=== PATIENT | female | born 1985 | race Caucasian/White ===

== ENCOUNTER 2016-10-28 17:38 | Emergency (ER) | payer MEDICARE, MEDICAID ==
[2016-10-28] MEDS ORDERED: Ondansetron 8 MG Tab.DIS PO ONE (18:21)
[2016-10-28] MEDS ORDERED: Alum Hydroxide/Mag Hydroxide 15 ML, Lidocaine 2% 15 ML PO STA ×2 (18:22)
--- NOTE | 2016-10-28 18:24 | EDM.PDOC ---
ED HPI GENERAL MEDICAL PROBLEM - General Chief Complaint: Abdominal Pain Stated Complaint: LEFT SIDE PAIN, Time Seen by Provider: 10/28/16 17:54 Source of Information: Reports: Patient, Family History Limitations: Reports: No Limitations - History of Present Illness INITIAL COMMENTS - FREE TEXT/NARRATIVE: 31 yo.w.f with a h/o esophagits, come to the ed with her SO, due to acute pain at her mid upper and right upper abdomen. Pt denies using tobacco, etoh or illicit drugs. No trauma. No abdominal surgery in the past, denies . No other acute medical issues. BP 122/56 pulse 76. Onset: Today Onset Date: 10/28/16 Onset Time: 08:00 Duration: Hour(s):, Intermittent Location: Reports: Abdomen (epigastric, RUQ of abdomen) Quality: Reports: Burning, Dull Severity: Moderate Improves with: Reports: Rest Worsens with: Reports: Eating Context: Reports: Other (stress?) Associated Symptoms: Reports: Seizure (H/O) Right Upper Abdomen Pain Score (Numeric/FACES): 9 - Related Data Allergies Allergy/AdvReac Type Severity Reaction Status Date / Time divalproex sodium Allergy Hives Verified 10/28/16 17:53 [From Depakote] Home Meds: Home Meds Ondansetron [Zofran ODT] 4 mg PO Q6H PRN #14 tab.dis 10/28/16 [Rx] Pantoprazole Sodium [Protonix] 40 mg PO DAILY #30 tablet. 10/28/16 [Rx] carBAMazepine [Carbamazepine] 200 mg PO BID 10/28/16 [History] Past Medical History HEENT History: Reports: None Cardiovascular History: Reports: None Respiratory History: Reports: None Gastrointestinal History: Reports: GERD, Inflammatory Bowel Disease Genitourinary History: Reports: None [facility] History: Reports: None Musculoskeletal History: Reports: None Neurological History: Reports: Concussion, Head Trauma, Seizure Psychiatric History: Reports: ADHD, Anxiety, PTSD Endocrine/Metabolic History: Reports: None Hematologic History: Reports: None Oncologic (Cancer) History: Reports: None Dermatologic History: Reports: None - Infectious Disease History Infectious Disease History: Reports: Chicken Pox - Past Surgical History Head Surgeries/Procedures: Reports: None Other HEENT Surgeries/Procedures: WISDOM TEETH UNDER GENERAL ANESTHESIA. GI Surgical History: Reports: EGD Social & Family History - Family History Family Medical History: Noncontributory - Tobacco Use Smoking Status *Q: Current Every Day Smoker Years of Tobacco use: 2 Packs/Tins Daily: 0.5 - Caffeine Use Caffeine Use: Reports: None - Recreational Drug Use Recreational Drug Use: No ED ROS GENERAL - Review of Systems Review Of Systems: See Below Constitutional: Reports: No Symptoms HEENT: Reports: No Symptoms Respiratory: Reports: No Symptoms Cardiovascular: Reports: No Symptoms Endocrine: Reports: No Symptoms GI/Abdominal: Reports: Abdominal Pain : Reports: No Symptoms Musculoskeletal: Reports: No Symptoms Skin: Reports: No Symptoms Neurological: Reports: No Symptoms Psychiatric: Reports: No Symptoms Hematologic/Lymphatic: Reports: No Symptoms Immunologic: Reports: No Symptoms ED EXAM, GI/ABD - Physical Exam Exam: See Below Exam Limited By: No Limitations General Appearance: Alert, WD/WN, Mild Distress Eyes: Bilateral: Normal Appearance Ears: Normal External Exam Nose: Normal Inspection Throat/Mouth: Normal Inspection, Normal Lips, Normal Teeth Head: Atraumatic, Normocephalic Neck: Normal Inspection, Supple, Non-Tender Respiratory/Chest: No Respiratory Distress, Lungs Clear, Normal Breath Sounds, Chest Non-Tender Cardiovascular: Normal Peripheral Pulses, Regular Rate, Rhythm, No Edema, No Gallop GI/Abdominal Exam: Normal Bowel Sounds, Tender (epigastric and RUQ of abdomen) (Female) Exam: Deferred Rectal (Female) Exam: Deferred Back Exam: Normal Inspection, Full Range of Motion Extremities: Normal Inspection, Normal Range of Motion, Non-Tender Neurological: Alert, Oriented, CN II-XII Intact, Normal Cognition, Normal Gait, No Motor/Sensory Deficits Psychiatric: Normal Affect, Normal Mood Skin Exam: Warm, Dry, Intact, Normal Color, No Rash Lymphatic: No Adenopathy Course - Vital Signs Text/Narrative:: 31 yo.w.f with a h/o esophagits, come to the ed with her SO, due to acute pain at her mid upper and right upper abdomen. Pt denies using tobacco, etoh or illicit drugs. No trauma. No abdominal surgery in the past, denies . No other acute medical issues. BP 122/56 pulse 76. PE: WNWD w f, RUQ and mid upper abd. tenderness, with guarding. Labs: CBC, BMP nl. TB 0.3 and DB: 0.0 UA neg Imaging: US abd. pending, not available Impression: Gastritis, esophagitis, RUQ abd. pain Tx: Zofran, Gi coctail, Protonix and [place]. Reexam: Mild mod. improvement Plan: D/C with instructions Last Recorded V/S: Last Vital Signs Temp 36.1 C 10/28/16 17:54 Pulse 68 10/28/16 19:54 Resp 14 10/28/16 19:54 BP 118/60 10/28/16 19:54 Pulse Ox 99 10/28/16 19:54 - Orders/Labs/Meds Labs: Laboratory Tests 10/28/16 10/28/16 10/28/16 Range/Units 17:55 19:30 19:30 WBC 9.6 (4.5-12.0) X10-3/uL RBC 4.50 (3.23-5.20) x10(6)uL Hgb 14.0 (11.5-15.5) g/dL Hct 41.5 (30.0-51.3) % MCV 92.2 (80-96) fL MCH 31.1 (27.7-33.6) pg MCHC 33.7 (32.2-35.4) g/dL RDW 12.3 (11.5-15.5) % Plt Count 199 (125-369) X10(3)uL MPV 7.9 (7.4-10.4) fL Neut % (Auto) 60.7 (46-82) % Lymph % (Auto) 30.6 (13-37) % [place] % (Auto) 6.3 (4-12) % Eos % (Auto) 2 (1.0-5.0) % Baso % (Auto) 0 (0-2) % Neut # (Auto) 5.9 (1.6-8.3) # Lymph # (Auto) 2.9 (0.6-5.0) # [place] # (Auto) 0.6 (0.0-1.3) # Eos # (Auto) 0.2 (0.0-0.8) # Baso # (Auto) 0.0 (0.0-0.2) # Sodium 139 (135-145) mmol/L Potassium 3.7 (3.5-5.3) mmol/L Chloride 106 (100-110) mmol/L Carbon Dioxide 25 (23-29) mmol/L BUN 10 (5-20) mg/dL Creatinine 0.6 (0.6-1.3) mg/dL Est Cr Clr Drug Dosing 112.38 mL/min Estimated GFR (MDRD) > 60 (>60) BUN/Creatinine Ratio 16.7 (9-20) Glucose 89 (80-116) mg/dL Calcium 8.6 (8.6-10.2) mg/dL Total Bilirubin 0.3 (0.1-1.3) mg/dL Direct Bilirubin 0.0 L (0.1-0.2) mg/dL AST 16 (5-27) IU/L ALT 8 L (14-26) IU/L Alkaline Phosphatase 55 L (56-112) IU/L Total Protein 7.1 (6.0-8.0) g/dL Albumin 4.0 (3.5-5.2) g/dL Amylase 47 (28-100) U/L Urine Color Yellow (YELLOW) Urine Appearance Clear (CLEAR) Urine pH 6.0 (5.0-6.5) Ur Specific [place] 1.020 (1.010-1.025) Urine Protein Negative (NEGATIVE) mg/dL Urine Glucose (UA) Normal (NEGATIVE) mg/dL Urine Ketones Negative (NEGATIVE) mg/dL Urine Occult Blood Negative (NEGATIVE) Urine Nitrite Negative (NEGATIVE) Urine Bilirubin Negative (NEGATIVE) Urine Urobilinogen Normal (NEGATIVE) mg/dL Ur Leukocyte Esterase Negative (NEGATIVE) Urine RBC Not seen (0) Urine WBC 0-5 (0) Ur Squamous Epith Cells Moderate H (NS,R,O) Urine Bacteria Moderate H (NS) Meds: Medications Discontinued Medications Generic Name Dose Route Start Last Admin Trade Name Freq PRN Reason Stop Dose Admin Hydrocodone Bitart/Acetaminophen 1 tab 10/28/16 19:21 10/28/16 19:25 [place] 325-5 Mg PO 10/28/16 19:22 1 tab ONETIME ONE Administration Al Hydroxide/Mg Hydroxide 15 0 ml 10/28/16 18:22 10/28/16 18:38 ml/ Lidocaine HCl 15 ml PO 10/28/16 18:23 30 ml ONETIME STA Administration Ondansetron HCl 8 mg 10/28/16 18:21 08/27/17 18:31 Zofran Odt PO 10/28/16 18:22 8 mg ONETIME ONE Administration Pantoprazole Sodium 40 mg 10/28/16 19:23 10/28/16 19:25 Protonix PO 10/28/16 19:24 40 mg ONETIME ONE Administration Departure - Departure Time of Disposition: 19:53 Disposition: Home, Self-Care 01 Condition: Good Clinical Impression: Gastritis, RUQ pain, Esophagitis determined by endoscopy - Discharge Information Prescriptions: Ondansetron [Zofran ODT] 4 mg PO Q6H PRN #14 tab.dis PRN Reason: nausea and vomiting Pantoprazole Sodium [Protonix] 40 mg PO DAILY #30 tablet.dr Referrals: Jonathan Sanford MD [Primary Care Provider] - Forms: ED Department Discharge Additional Instructions: Please f/u on 10/29/2016 10.30 am for US RUQ of abdomen. NPO after midnight. Please take the meds as recommended, please come back to the ed if your symptoms get worse acutely.
[2016-10-28] MEDS ORDERED: Acetaminophen/HYDROcodone 325-5 MG Tab PO ONE (19:21)
[2016-10-28] MEDS ORDERED: Pantoprazole 40 MG Tab.CR PO ONE (19:23)
[2016-10-28 19:57] VITALS: BP 118/60
== END 2016-10-28 19:54 | disposition home or self-care (01) ==
LOC: FB.ED 17:38 → MERGE 17:38 → FB.ED 19:54
DX: K21.0 Gastro-esophageal reflux disease with esophagitis (principal); K29.70 Gastritis, unspecified, without bleeding; F90.9 Attention-deficit hyperactivity disorder, unspecified type; F41.9 Anxiety disorder, unspecified; F17.210 Nicotine dependence, cigarettes, uncomplicated; Z79.899 Other long term (current) drug therapy
CPT/HCPCS: 36415; 80048; 80076; 81001; 82150; 85025; 99284; A9270; 99283

== ENCOUNTER 2017-01-06 11:12 | Emergency (ER) | payer MEDICARE, MEDICAID ==
[2017-01-06] MEDS ORDERED: Ketorolac 60 MG/2 ML SDV IM ONE (11:32)
--- NOTE | 2017-01-06 11:42 | EDM.PDOC ---
ED HPI GENERAL MEDICAL PROBLEM - General Chief Complaint: General Stated Complaint: RIB/CHEST PAIN Time Seen by Provider: 01/06/17 11:12 Source of Information: Reports: Patient, Family - History of Present Illness INITIAL COMMENTS - FREE TEXT/NARRATIVE: 31 y.o.w.f with h/o Sz, om Tegretol, level checked recently, came to the ed after she fell onto her r lat chest wall. Pt has painfull in and expiration, tender to palpation. No N/V/D or any other injuries/acute medical issues. BP 136 /86 Pulse 66 RR 18 Pulse ox 100% Temp 36.6 Onset: Today Onset Date: 01/06/17 Onset Time: 06:00 Duration: Hour(s):, Intermittent Location: Reports: Chest Quality: Reports: Burning, Dull Severity: Moderate Right Thoracic Pain Score (Numeric/FACES): 10 - Related Data Allergies Allergy/AdvReac Type Severity Reaction Status Date / Time divalproex sodium Allergy Hives Verified 01/06/17 11:37 [From Depakote] Home Meds: Home Meds carBAMazepine [Carbamazepine] 200 mg PO BID 10/28/16 [History] Past Medical History HEENT History: Reports: None Cardiovascular History: Reports: None Respiratory History: Reports: None Gastrointestinal History: Reports: GERD, Inflammatory Bowel Disease Genitourinary History: Reports: None [employer] History: Reports: None Musculoskeletal History: Reports: None Neurological History: Reports: Concussion, Head Trauma, Seizure Psychiatric History: Reports: ADHD, Anxiety, PTSD Endocrine/Metabolic History: Reports: None Hematologic History: Reports: None Oncologic (Cancer) History: Reports: None Dermatologic History: Reports: None - Infectious Disease History Infectious Disease History: Reports: Chicken Pox - Past Surgical History Head Surgeries/Procedures: Reports: None HEENT Surgical History: Reports: Other (See Below) Other HEENT Surgeries/Procedures: WISDOM TEETH UNDER GENERAL ANESTHESIA. GI Surgical History: Reports: EGD Social & Family History - Family History Family Medical History: Noncontributory - Tobacco Use Smoking Status *Q: Current Every Day Smoker Years of Tobacco use: 4 Packs/Tins Daily: 0.5 - Caffeine Use Caffeine Use: Reports: None - Recreational Drug Use Recreational Drug Use: No ED ROS GENERAL - Review of Systems Review Of Systems: See Below Constitutional: Reports: No Symptoms HEENT: Reports: No Symptoms Respiratory: Reports: Pleuritic Chest Pain Cardiovascular: Reports: No Symptoms Endocrine: Reports: No Symptoms GI/Abdominal: Reports: No Symptoms : Reports: No Symptoms Musculoskeletal: Reports: No Symptoms Skin: Reports: No Symptoms Neurological: Reports: No Symptoms Psychiatric: Reports: No Symptoms Hematologic/Lymphatic: Reports: No Symptoms Immunologic: Reports: No Symptoms ED EXAM, GENERAL - Physical Exam Exam: See Below Exam Limited By: No Limitations General Appearance: Alert, WD/WN, Mild Distress Eye Exam: Bilateral Eye: Normal Inspection Ears: Normal External Exam Ear Exam: Bilateral Ear: Auricle Normal Nose: Normal Inspection Throat/Mouth: Normal Inspection Head: Atraumatic, Normocephalic Neck: Normal Inspection Respiratory/Chest: No Respiratory Distress, Lungs Clear, Normal Breath Sounds ( poor insp effort due to pain r ribs) Cardiovascular: Normal Peripheral Pulses Peripheral Pulses: 2+: Brachial (L), Brachial (R) GI/Abdominal: Normal Bowel Sounds, Soft (Female) Exam: Deferred Rectal (Female) Exam: Deferred Back Exam: Normal Inspection, Full Range of Motion Extremities: Normal Inspection, Normal Range of Motion Neurological: Alert, Oriented Psychiatric: Normal Affect, Normal Mood Skin Exam: Warm, Dry, Intact, Normal Color, No Rash Lymphatic: No Adenopathy Course - Vital Signs Text/Narrative:: 31 y.o.w.f with h/o Sz, om Tegretol, level checked recently, came to the ed after she fell onto her r lat chest wall. Pt has painfull in and expiration, tender to palpation. No N/V/D or any other injuries/acute medical issues. BP 136 /86 Pulse 66 RR 18 Pulse ox 100% Temp 36.6 no tongue bite, not post ictal PE: R chest pleurisy Imaging: R rib series: NAD, read by RAD Impression: H/O Sz, R chest wall sprain Tx: Toradol, ICE Reexam: Improved Plan: D/C with instructions Last Recorded V/S: Last Vital Signs Temp 36.6 C 01/06/17 11:26 Pulse 60 01/06/17 13:00 Resp 18 01/06/17 11:26 BP 112/78 01/06/17 13:00 Pulse Ox 100 01/06/17 11:26 - Orders/Labs/Meds Orders: Active Orders 24 hr Category Date Time Status Cooling Warming Measures [RC] ASDIRECTED Care 01/06/17 11:33 Active Ribs 2V w Chest Rt [CR] Stat Exams 01/06/17 11:31 Taken Ice Bag [Ice Therapy] [OM.PC] Routine Oth 01/06/17 11:33 Ordered Meds: Medications Discontinued Medications Generic Name Dose Route Start Last Admin Trade Name Nora PRN Reason Stop Dose Admin Ketorolac Tromethamine 60 mg 01/06/17 11:32 01/06/17 11:41 Toradol IM 01/06/17 11:33 60 mg ONETIME ONE Administration Departure - Departure Time of Disposition: 12:51 Disposition: Home, Self-Care 01 Condition: Good Clinical Impression: Sprain of ribs, initial encounter - Discharge Information Referrals: Jonathan Sanford MD [Primary Care Provider] - Forms: ED Department Discharge Additional Instructions: Please cont your current meds, please apply ice to the affected area, motrin for pain, follow up, come back if your symptoms get worse acutely - My Orders Last 24 Hours: My Active Orders 01/06/17 11:31 Ribs 2V w Chest Rt [CR] Stat 01/06/17 11:33 Cooling Warming Measures [RC] ASDIRECTED Ice Bag [Ice Therapy] [OM.PC] Routine - Assessment/Plan Last 24 Hours: My Active Orders 01/06/17 11:31 Ribs 2V w Chest Rt [CR] Stat 01/06/17 11:33 Cooling Warming Measures [RC] ASDIRECTED Ice Bag [Ice Therapy] [OM.PC] Routine
[2017-01-06 13:01] VITALS: BP 112/78
--- NOTE | 2017-01-06 14:32 | EDM.PDOC ---
ED HPI GENERAL MEDICAL PROBLEM - General Chief Complaint: General Stated Complaint: RIB/CHEST PAIN Time Seen by Provider: 01/06/17 11:12 Source of Information: Reports: Patient, Family History Limitations: Reports: No Limitations - History of Present Illness INITIAL COMMENTS - FREE TEXT/NARRATIVE: 31 y.o.w.f with h/o Sz, om Tegretol, level checked recently, came to the ed after she fell onto her r lat chest wall. Pt has painfull in and expiration, tender to palpation. No N/V/D or any other injuries/acute medical issues. BP 136 /86 Pulse 66 RR 18 Pulse ox 100% Temp 36.6 Onset: Today Onset Date: 01/06/17 Onset Time: 06:00 Duration: Hour(s):, Intermittent Location: Reports: Chest Quality: Reports: Burning, Dull Severity: Moderate Right Thoracic Pain Score (Numeric/FACES): 10 - Related Data Allergies Allergy/AdvReac Type Severity Reaction Status Date / Time divalproex sodium Allergy Hives Verified 01/06/17 11:37 [From Depakote] Home Meds: Home Meds carBAMazepine [Carbamazepine] 200 mg PO BID 10/28/16 [History] Past Medical History HEENT History: Reports: None Cardiovascular History: Reports: None Respiratory History: Reports: None Gastrointestinal History: Reports: GERD, Inflammatory Bowel Disease Genitourinary History: Reports: None [employer] History: Reports: None Musculoskeletal History: Reports: None Neurological History: Reports: Concussion, Head Trauma, Seizure Psychiatric History: Reports: ADHD, Anxiety, PTSD Endocrine/Metabolic History: Reports: None Hematologic History: Reports: None Oncologic (Cancer) History: Reports: None Dermatologic History: Reports: None - Infectious Disease History Infectious Disease History: Reports: Chicken Pox - Past Surgical History Head Surgeries/Procedures: Reports: None HEENT Surgical History: Reports: Other (See Below) Other HEENT Surgeries/Procedures: WISDOM TEETH UNDER GENERAL ANESTHESIA. GI Surgical History: Reports: EGD Social & Family History - Family History Family Medical History: Noncontributory - Tobacco Use Smoking Status *Q: Current Every Day Smoker Years of Tobacco use: 4 Packs/Tins Daily: 0.5 - Caffeine Use Caffeine Use: Reports: None - Recreational Drug Use Recreational Drug Use: No ED ROS GENERAL - Review of Systems Review Of Systems: See Below Constitutional: Reports: No Symptoms HEENT: Reports: No Symptoms Respiratory: Reports: No Symptoms Cardiovascular: Reports: Chest Pain Endocrine: Reports: No Symptoms GI/Abdominal: Reports: No Symptoms : Reports: No Symptoms Musculoskeletal: Reports: No Symptoms Skin: Reports: No Symptoms Neurological: Reports: No Symptoms Psychiatric: Reports: No Symptoms Hematologic/Lymphatic: Reports: No Symptoms Immunologic: Reports: No Symptoms ED EXAM, GENERAL - Physical Exam Exam: See Below Free Text/Narrative:: 31 y.o.w.f with h/o Sz, om Tegretol, level checked recently, came to the ed after she fell onto her r lat chest wall. Pt has painfull in and expiration, tender to palpation. No N/V/D or any other injuries/acute medical issues. BP 136 /86 Pulse 66 RR 18 Pulse ox 100% Temp 36.6 Exam Limited By: No Limitations General Appearance: Alert, WD/WN, Mild Distress Eye Exam: Bilateral Eye: Normal Inspection Ears: Normal External Exam Ear Exam: Bilateral Ear: Auricle Normal Nose: Normal Inspection Throat/Mouth: Normal Inspection Head: Atraumatic, Normocephalic Neck: Normal Inspection Respiratory/Chest: No Respiratory Distress, Lungs Clear, Normal Breath Sounds ( poor insp effort due to pain r ribs) Cardiovascular: Normal Peripheral Pulses Peripheral Pulses: 2+: Brachial (L), Brachial (R) GI/Abdominal: Normal Bowel Sounds, Soft Back Exam: Normal Inspection, Full Range of Motion Extremities: Normal Inspection, Normal Range of Motion Neurological: Alert, Oriented Psychiatric: Normal Affect, Normal Mood Skin Exam: Warm, Dry, Intact, Normal Color, No Rash Lymphatic: No Adenopathy Course - Vital Signs Text/Narrative:: 31 y.o.w.f with h/o Sz, om Tegretol, level checked recently, came to the ed after she fell onto her r lat chest wall. Pt has painfull in and expiration, tender to palpation. No N/V/D or any other injuries/acute medical issues. BP 136 /86 Pulse 66 RR 18 Pulse ox 100% Temp 36.6 PE: R chest wall pain after fall Imaging: R Ribseries: No Fx as per RAD Impression: R rib sprain Tx: NSAID, ICE Reexam: Improved Plan: D/C with instructions Last Recorded V/S: Last Vital Signs Temp 36.6 C 01/06/17 11:26 Pulse 60 1105/17 13:00 Resp 18 01/06/17 11:26 BP 112/78 01/06/17 13:00 Pulse Ox 100 01/06/17 11:26 - Orders/Labs/Meds Orders: Active Orders 24 hr Category Date Time Status Cooling Warming Measures [RC] ASDIRECTED Care 01/06/17 11:33 Active Ribs 2V w Chest Rt [CR] Stat Exams 01/06/17 11:31 Taken Ice Bag [Ice Therapy] [OM.PC] Routine Oth 01/06/17 11:33 Ordered Meds: Medications Discontinued Medications Generic Name Dose Route Start Last Admin Trade Name Nora PRN Reason Stop Dose Admin Ketorolac Tromethamine 60 mg 01/06/17 11:32 01/06/17 11:41 Toradol IM 01/06/17 11:33 60 mg ONETIME ONE Administration Departure - Departure Time of Disposition: 14:00 Disposition: Home, Self-Care 01 Condition: Good Clinical Impression: Sprain of ribs, initial encounter - Discharge Information Referrals: Jonathan Sanford MD [Primary Care Provider] - Forms: ED Department Discharge Additional Instructions: Please cont your current meds, please apply ice to the affected area, motrin for pain, follow up, come back if your symptoms get worse acutely - My Orders Last 24 Hours: My Active Orders 01/06/17 11:31 Ribs 2V w Chest Rt [CR] Stat 01/06/17 11:33 Cooling Warming Measures [RC] ASDIRECTED Ice Bag [Ice Therapy] [OM.PC] Routine - Assessment/Plan Last 24 Hours: My Active Orders 01/06/17 11:31 Ribs 2V w Chest Rt [CR] Stat 01/06/17 11:33 Cooling Warming Measures [RC] ASDIRECTED Ice Bag [Ice Therapy] [OM.PC] Routine
== END 2017-01-06 13:00 | disposition home or self-care (01) ==
LOC: MERGE 11:12 → FB.ED 11:12
DX: S23.41XA Sprain of ribs, initial encounter (principal); F17.210 Nicotine dependence, cigarettes, uncomplicated; Z88.8 Allergy status to other drugs, medicaments and biological substances; W19.XXXA Unspecified fall, initial encounter
CPT/HCPCS: 71101; 96372; 99283; J1885

== ENCOUNTER 2017-11-24 12:19 | Emergency (ER) | payer MEDICAID, MEDICARE ==
--- NOTE | 2017-11-24 12:56 | EDM.PDOC ---
ED HPI GENERAL MEDICAL PROBLEM - General Chief Complaint: Lower Extremity Injury/Pain Stated Complaint: R ANKLE PAIN Time Seen by Provider: 11/24/17 12:54 Source of Information: Reports: Patient History Limitations: Reports: No Limitations - History of Present Illness INITIAL COMMENTS - FREE TEXT/NARRATIVE: Twisted right ankle last night at 2120 when stepped in a ditch. Onset Date: 11/23/17 Onset Time: 21:20 Location: Reports: Lower Extremity, Right Quality: Reports: Dull Severity: Moderate Treatments LOGGER: Reports: NSAIDS - Related Data Allergies Allergy/AdvReac Type Severity Reaction Status Date / Time divalproex sodium Allergy unknown Verified 05/17/15 09:09 [From Depakote] Home Meds: Home Meds carBAMazepine [Carbamazepine] 200 mg PO BID 10/28/16 [History] Past Medical History HEENT History: Reports: None Cardiovascular History: Reports: None Respiratory History: Reports: None Gastrointestinal History: Reports: GERD, Inflammatory Bowel Disease Genitourinary History: Reports: None RN FLOAT History: Reports: None Musculoskeletal History: Reports: None Neurological History: Reports: Concussion, Head Trauma, Seizure Psychiatric History: Reports: ADHD, Anxiety, PTSD Endocrine/Metabolic History: Reports: None Hematologic History: Reports: None Oncologic (Cancer) History: Reports: None Dermatologic History: Reports: None - Infectious Disease History Infectious Disease History: Reports: Chicken Pox - Past Surgical History Head Surgeries/Procedures: Reports: None HEENT Surgical History: Reports: Other (See Below) Other HEENT Surgeries/Procedures: WISDOM TEETH UNDER GENERAL ANESTHESIA. GI Surgical History: Reports: EGD Social & Family History - Family History Family Medical History: Noncontributory - Tobacco Use Smoking Status *Q: Current Every Day Smoker Tobacco Use Within Last Twelve Months: Cigarettes - Caffeine Use Caffeine Use: Reports: None Review of Systems - Review of Systems Review Of Systems: ROS reveals no pertinent complaints other than HPI. ED EXAM, GENERAL - Physical Exam Exam: See Below Exam Limited By: No Limitations General Appearance: Alert, WD/WN Ears: Normal External Exam Nose: Normal Inspection Throat/Mouth: No Airway Compromise Head: Atraumatic, Normocephalic Neck: Full Range of Motion Respiratory/Chest: No Respiratory Distress Peripheral Pulses: 2+: Dorsalis Pedis (R) Extremities: Normal Capillary Refill, Other (Ecchymosis, swelling and tenderness to lateral ankle and foot) Neurological: No Motor/Sensory Deficits Psychiatric: Normal Affect, Normal Mood Skin Exam: Warm, Dry, Intact Course - Orders/Labs/Meds Orders: Active Orders 24 hr Category Date Time Status Splinting [RC] CONTINUOUS Care 11/24/17 13:16 Ordered Ankle Min 3V Rt [CR] Stat Exams 11/24/17 12:54 Ordered Foot Comp Min 3V Rt [CR] Stat Exams 11/24/17 12:58 Ordered - Radiology Interpretation Free Text/Narrative:: Right Ankle and Foot XR: No acute osseous abnormality (per ED provider interpretation). Departure - Departure Time of Disposition: 13:18 Disposition: Home, Self-Care 01 Condition: Good Clinical Impression: Right ankle sprain Qualifiers: Encounter type: initial encounter Involved ligament of ankle: unspecified ligament Qualified Code(s): S93.401A - Sprain of unspecified ligament of right ankle, initial encounter - Discharge Information *PRESCRIPTION DRUG MONITORING PROGRAM REVIEWED*: No *COPY OF PRESCRIPTION DRUG MONITORING REPORT IN PATIENT ARIADNA: Not Applicable Instructions: How to Use a Stirrup Ankle Brace, [id number], Ankle Sprain, [id number], Crutch Use, Adult, [id number] Referrals: Jonathan Sanford MD [Primary Care Provider] - Forms: ED Department Discharge Additional Instructions: Ice, elevate, Ibuprofen as needed, weight bear as tolerated. Follow up with your primary physician in 1 week if symptoms persist. - My Orders Last 24 Hours: My Active Orders 11/24/17 12:54 Ankle Min 3V Rt [CR] Stat 11/24/17 12:58 Foot Comp Min 3V Rt [CR] Stat 11/24/17 13:16 Splinting [RC] CONTINUOUS - Assessment/Plan Last 24 Hours: My Active Orders 11/24/17 12:54 Ankle Min 3V Rt [CR] Stat 11/24/17 12:58 Foot Comp Min 3V Rt [CR] Stat 11/24/17 13:16 Splinting [RC] CONTINUOUS
[2017-11-24 14:09] VITALS: BP 135/57
--- NOTE | 2017-11-26 11:28 | CR ---
INDICATION: Injury. RIGHT FOOT: Three views of the right foot revealed a mild bunion deformity medially and very minimally laterally. A fracture, dislocation, or other significant bone or joint abnormality was not identified. A tiny plantar calcaneal spur is noted. IMPRESSION: 1. No definite acute fracture or dislocation. If occult fracture site is suspected clinically, re-examination in 10-14 days may be helpful. 2. Bunion deformities of mild degree. MTDD
--- NOTE | 2017-11-26 11:29 | CR ---
INDICATION: Injury. RIGHT ANKLE: Three views of the right ankle revealed no evidence of a fracture , dislocation, or other significant bone or joint abnormality with the ankle mortise appearing intact. SERGEI
== END 2017-11-24 13:25 | disposition home or self-care (01) ==
LOC: FB.ED 12:19
DX: S93.401A Sprain of unspecified ligament of right ankle, initial encounter (principal); F17.210 Nicotine dependence, cigarettes, uncomplicated; Z88.8 Allergy status to other drugs, medicaments and biological substances; X50.1XXA Overexertion from prolonged static or awkward postures, initial encounter
CPT/HCPCS: 73610-RT; 73630-RT; 99283

== ENCOUNTER 2018-05-31 21:28 | Emergency (ER) | payer MEDICAID, OTHER ==
[2018-05-31] MEDS ORDERED: predniSONE 20 MG Tab PO ONE (22:05)
--- NOTE | 2018-05-31 22:07 | EDM.PDOC ---
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 no f/c/d, no rhinorrhea - Related Data Allergies Allergy/AdvReac Type Severity Reaction Status Date / Time divalproex sodium Allergy Vomiting Verified 02/16/18 00:55 [From Depakote] contrast dye Allergy Hives Uncoded 11/24/17 13:52 Home Meds: Home Meds predniSONE 20 mg PO DAILY #4 tab 05/31/18 [Rx] Past Medical History HEENT History: Reports: None Cardiovascular History: Reports: None Respiratory History: Reports: None Gastrointestinal History: Reports: GERD, Inflammatory Bowel Disease Genitourinary History: Reports: None [employer]AC[employer]INATOR History: Reports: None Musculoskeletal History: Reports: None Neurological History: Reports: Concussion, Head Trauma, Seizure Other Neuro History: brain lesions Psychiatric History: Reports: ADHD, Anxiety, PTSD Endocrine/Metabolic History: Reports: None Hematologic History: Reports: None Oncologic (Cancer) History: Reports: None Dermatologic History: Reports: None - Infectious Disease History Infectious Disease History: Reports: Chicken Pox - Past Surgical History Head Surgeries/Procedures: Reports: None HEENT Surgical History: Reports: Other (See Below) Other HEENT Surgeries/Procedures: WISDOM TEETH UNDER GENERAL ANESTHESIA. GI Surgical History: Reports: EGD Social & Family History - Family History Family Medical History: Noncontributory - Caffeine Use Caffeine Use: Reports: None ED ROS ENT - Review of Systems Review Of Systems: See Below Constitutional: Reports: Fatigue HEENT: Reports: Sinus Problem Respiratory: Reports: No Symptoms Endocrine: Reports: No Symptoms GI/Abdominal: Reports: No Symptoms : Reports: No Symptoms Musculoskeletal: Reports: No Symptoms Skin: Reports: No Symptoms Neurological: Reports: No Symptoms Psychiatric: Reports: No Symptoms Hematologic/Lymphatic: Reports: No Symptoms Immunologic: Reports: No Symptoms ED EXAM, ENT - Physical Exam Exam: See Below Exam Limited By: No Limitations General Appearance: Alert, WD/WN, No Apparent Distress, Other (nonill, appears tired, rested on the bed) Eye Exam: Bilateral Eye: EOMI, PERRL Ears: Normal External Exam, Normal Canal, Hearing Grossly Normal, Normal TMs Nose: Normal Inspection, Normal Mucousa, No Blood, Other (no swelling appreciated, no d/c) Mouth/Throat: Normal Inspection, Normal Gums, Normal Lips, Normal Oropharynx Head: Atraumatic, Normocephalic Neck: Normal Inspection, Supple, Non-Tender, Full Range of Motion. No: Lymphadenopathy (R), Lymphadenopathy (L) Respiratory/Chest: No Respiratory Distress, Lungs Clear, Normal Breath Sounds Cardiovascular: Regular Rate, Rhythm, No Edema GI/Abdominal: Soft, Non-Tender Back: Normal Inspection Extremities: Normal Inspection, Normal Range of Motion, Non-Tender, No Pedal Edema Neurological: Alert, Oriented, CN II-XII Intact, Normal Cognition, No Motor/ Sensory Deficits Skin: Warm, Dry, Intact, Normal Color, No Rash Lymphatic: No Adenopathy Departure - Departure Time of Disposition: 22:05 Disposition: Home, Self-Care 01 Condition: Good Clinical Impression: Sinus pressure - Discharge Information *PRESCRIPTION DRUG MONITORING PROGRAM REVIEWED*: Not Applicable *COPY OF PRESCRIPTION DRUG MONITORING REPORT IN PATIENT ARIADNA: Not Applicable Prescriptions: predniSONE 20 mg PO DAILY #4 tab Referrals: Jonathan Sanford MD [Primary Care Provider] - Additional Instructions: Continue the Flonase. For swelling, take prednisone 20 mg 1 tab daily for 4 more days. For pain and inflammation, take ibuprofen 200 mg 3 tabs and acetaminophen 500 mg 2 tabs 4 times a day for 2 days, longer if needed. May return to work tomorrow. Get adequate rest. See your doctor in 3-4 days.
[2018-06-01 04:31] VITALS: BP 122/87
== END 2018-05-31 22:20 | disposition home or self-care (01) ==
LOC: FB.ED 21:28
DX: J32.9 Chronic sinusitis, unspecified (principal); Z88.8 Allergy status to other drugs, medicaments and biological substances; Z91.041 Radiographic dye allergy status
CPT/HCPCS: 99283; A9270